=== PATIENT | female | born 1985 | race African-American/Black ===

== ENCOUNTER 2021-03-08 17:45 | Emergency (ER) | payer MEDICAID ==
[~2021-03-08] VITALS: Ht 167.6 cm; Wt 119.0 kg
[2021-03-08 17:59] VITALS: BP 124/86
== END 2021-03-08 22:00 | disposition left against medical advice (07) ==
LOC: ER 17:45
DX: Z53.21 Procedure and treatment not carried out due to patient leaving prior to being seen by health care provider (principal)

== ENCOUNTER 2021-03-12 18:35 | Emergency (ER) | payer MEDICAID ==
[~2021-03-12] VITALS: Ht 165.1 cm; Wt 119.0 kg
[2021-03-12 20:24] LABS: BASOPHILS % 0.9 % (0.0-2.0); EOSINOPHILS % 0.9 % (0.0-5.0); HEMATOCRIT. 45.2 % (36.0-48.0); HEMOGLOBIN. 15.3 g/dL (12.0-16.0); LYMPHOCYTES % 23.4 % (20.0-50.0); MEAN CORPUSCULAR HEMOGLOBIN 30.5 pg (28.0-32.0); MEAN PLATELET VOLUME 7.6 fl (7.4-10.4); MONOCYTES % 4.9 % (2.0-8.0); NEUTROPHILS % 69.9 % (40.0-76.0); PLATELET 303 x1000/uL (130-400); RED BLOOD CELL COUNT 5.03 mill/uL (4.2-5.4); RED CELL DISTRIBUTION WIDTH 14.6 % (11.6-14.6)
[2021-03-12 20:29] LABS: CHLORIDE 107 mEq/L (98-107)
[2021-03-12 20:39] LABS: B-HCG QUANTITATIVE < 1 mIU/mL (<3)
[2021-03-12 20:42] LABS: CLARITY URINE CLOUDY (CLEAR); COLOR URINE ORANGE (YELLOW); KETONES URINE NEGATIVE (NEGATIVE); LEUKOCYTE ESTERASE URINE TRACE (NEGATIVE); NITRITE URINE NEGATIVE (NEGATIVE); OCCULT BLOOD URINE 3+ (NEGATIVE); PH URINE 6.5 (4.5-8.0); PROTEIN URINE 1+ (NEGATIVE); UROBILINOGEN URINE 0.2 E.U./dL (0.2-1.0)
[2021-03-12 21:15] VITALS: BP 147/86
[2021-03-12] MEDS ORDERED: NITROFURANTOIN 100MG M/M CAPSULE PO ONE (21:15)
[2021-03-12] MEDS ORDERED: NITR-87 MT (21:29)
== END 2021-03-12 21:30 | disposition home or self-care (01) ==
LOC: ER 18:35
DX: N89.8 Other specified noninflammatory disorders of vagina (principal); D25.9 Leiomyoma of uterus, unspecified; N39.0 Urinary tract infection, site not specified
CPT/HCPCS: 36415; 76801; 80053; 81003; 81025; 84702; 85025; 86850; 86900; 99284